=== PATIENT | female | born 1985 | race African-American/Black ===

== ENCOUNTER 2017-08-17 14:35 | Emergency (ER) | payer MEDICARE, MEDICAID ==
[2017-08-17] MEDS ORDERED: Lidocaine 4% Cream 5 GM TUBE w/ Tegaderm ONE (16:48)
[2017-08-17] MEDS ORDERED: HYDROcodone/Acetaminophen 5/325 mg Tablet ONE (17:10)
[2017-08-17] MEDS ORDERED: Adacel (T-DAP) 0.5 ML VIAL ONE (17:51)
[2017-08-17] MEDS ORDERED: Bacitracin Zinc 1 Packet ONE (17:59)
== END 2017-08-17 18:08 | disposition home or self-care (01) ==
LOC: ERS 14:35
DX: S81.812A Laceration without foreign body, left lower leg, initial encounter (principal); S00.432A Contusion of left ear, initial encounter; J45.909 Unspecified asthma, uncomplicated; F31.9 Bipolar disorder, unspecified; F20.9 Schizophrenia, unspecified; F17.210 Nicotine dependence, cigarettes, uncomplicated; Z23 Encounter for immunization; W20.8XXA Other cause of strike by thrown, projected or falling object, initial encounter
CPT/HCPCS: 12001; 90471; 90715

== ENCOUNTER 2017-10-16 19:12 | Emergency (ER) | payer MEDICARE, OTHER | END 2017-10-16 19:46 | disposition home or self-care (01) | LOC: ERS 19:12 → EEVIPCON 19:12 → ERS 19:46 | DX: B86 Scabies (principal); F20.9 Schizophrenia, unspecified; J45.909 Unspecified asthma, uncomplicated; F31.9 Bipolar disorder, unspecified; F17.210 Nicotine dependence, cigarettes, uncomplicated; Z71.6 Tobacco abuse counseling | CPT/HCPCS: 99406 ==

== ENCOUNTER 2018-01-14 19:27 | Emergency (ER) | payer MEDICARE, OTHER ==
[2018-01-14] MEDS ORDERED: predniSONE 20 MG TAB ONE (19:39)
[2018-01-14] MEDS ORDERED: Metoprolol Tartrate 5 MG/5 ML VIAL ONE (20:07)
[2018-01-14] MEDS ORDERED: Metoprolol Tartrate 25 MG TAB ONE (20:08)
--- NOTE | 2018-01-14 20:41 | RAD ---
CHEST TWO VIEWS: 01/14/18 HISTORY: Cough and congestion. COMPARISON: 01/19/16. FINDINGS: cardiac silhouette and pulmonary vasculature are unremarkable. Mediastinum is midline. No confluent a ir space consolidation, pneumothorax or pleural fluid. IMPRESSION: No active cardiopulmonary abnormalities are demonstrated. POS: [facility]
== END 2018-01-14 21:19 | disposition home or self-care (01) ==
LOC: ERS 19:27
DX: J45.909 Unspecified asthma, uncomplicated (principal); I10 Essential (primary) hypertension; F31.9 Bipolar disorder, unspecified; F20.9 Schizophrenia, unspecified; F17.210 Nicotine dependence, cigarettes, uncomplicated
CPT/HCPCS: 71046; J7506; J7620

== ENCOUNTER 2018-12-09 10:53 | Day surgery (SDC) | payer MEDICARE, MEDICAID ==
[2018-12-08 15:15] VITALS: BMI 58.3
[2018-12-09] MEDS ORDERED: Lidocaine 1% PF 5 ML VIAL ONE (12:34)
[2018-12-09] MEDS ORDERED: PROPOFOL 200 MG/20 ML VIAL ONE (12:34)
--- NOTE | 2018-12-09 13:49 | OP ---
DATE OF PROCEDURE: 12/09/2018 PROCEDURE PERFORMED: Colonoscopy. PREMEDICATION: Given by Anesthesiology Department. PREPROCEDURE DIAGNOSES: Hematochezia/persistent rectal bleeding. POSTPROCEDURE DIAGNOSES: 1. Small grade 1 internal hemorrhoids. 2. Otherwise, normal colon exam. DESCRIPTION OF PROCEDURE: Written consents were obtained prior to procedure. After adequate sedation, a rectal exam was performed and was normal. There was no visible external hemorrhoids. The endoscope was advanced to the cecum. The quality of the bowel prep was good. The cecum, ascending colon, hepatic flexure, transverse colon, splenic flexure, descending colon, and rectosigmoid colon, all appeared normal. Retroflexion showed small internal hemorrhoids, grade 1. There was no thrombosis or inflammation noted. The instrument was then fully removed. The patient tolerated the procedure well. ASSESSMENT: 1. Small grade 1 internal hemorrhoids. 2. Otherwise, normal colon exam. RECOMMENDATION: 1. Fiber rich diet. 2. Daily fiber supplement with increased water intake. 3. Follow up office in six weeks. Job ID: [id number]
== END 2018-12-09 13:10 | disposition home or self-care (01) ==
LOC: SDC 10:53
PROVIDERS: ATTEND Internal Medicine Gastroenterology
PROC: 0DJD8ZZ Inspection of Lower Intestinal Tract, Via Natural or Artificial Opening Endoscopic (ICD-10-PCS; principal; 2018-12-09)
DX: K64.8 Other hemorrhoids (principal); I10 Essential (primary) hypertension; E78.00 Pure hypercholesterolemia, unspecified; F17.210 Nicotine dependence, cigarettes, uncomplicated; J45.909 Unspecified asthma, uncomplicated; Z79.899 Other long term (current) drug therapy
CPT/HCPCS: J2001; J2704

== ENCOUNTER 2019-08-30 10:20 | Emergency (ER) | payer MEDICARE, MEDICAID, OTHER ==
[2019-08-30 18:32] LABS: SARS-CoV-2 MS2 Positive; SARS-CoV-2 N Gene Positive; SARS-CoV-2 S Gene Positive; SARS-CoV-2 orf1ab Positive
== END 2019-08-30 10:50 | disposition home or self-care (01) ==
LOC: ERS 10:20
DX: U07.1 COVID-19 (principal); B34.9 Viral infection, unspecified; J45.909 Unspecified asthma, uncomplicated; I10 Essential (primary) hypertension; F17.210 Nicotine dependence, cigarettes, uncomplicated; F20.9 Schizophrenia, unspecified; F31.9 Bipolar disorder, unspecified
CPT/HCPCS: 99283; U0003; 87635

== ENCOUNTER 2021-05-17 15:38 | Outpatient (CLI) | payer MEDICARE, MEDICAID | END 2021-05-17 15:39 | disposition home or self-care (01) | LOC: BICRAD 15:38 | PROVIDERS: ATTEND Family Medicine | DX: J18.9 Pneumonia, unspecified organism (principal) | CPT/HCPCS: 71046 ==

== ENCOUNTER 2023-08-08 10:29 | Outpatient (CLI) | payer MEDICARE ==
[2023-08-08 12:04] LABS: BHCG - Serum Negative (NEGATIVE); Pregs Control Background? CLEAR/WHITE (CLR/WHITE); Pregs Control Bar Appear? YES (CONTROL BAR)
[2023-08-08 12:17] LABS: Anion Gap 14 mmol/L (10-20); BUN (Urea Nitrogen) 10 mg/dL (7.0-18.7); Calc. Creatinine Clearance 0 mL/min (70-130); Calcium 9.1 mg/dL (7.8-10.44); Carbon Dioxide 20 mmol/L (22-29); Chloride 107 mmol/L (98-107); Estimated GFR 76; Glucose 103 mg/dL (70-105); Potassium 3.8 mmol/L (3.5-5.1); Sodium 137 mmol/L (136-145)
[2023-08-08 15:04] LABS: Hemoglobin A1c 5.4 % (4.0-6.0)
== END 2023-08-08 10:30 | disposition home or self-care (01) ==
LOC: LABBT 10:29
PROVIDERS: ATTEND Specialist
DX: Z01.818 Encounter for other preprocedural examination (principal); E66.01 Morbid (severe) obesity due to excess calories
CPT/HCPCS: 80048; 83036; 84703; 93005; 93010